=== PATIENT | female | born 1965 | race Caucasian/White ===

== ENCOUNTER 2018-05-13 13:53 | Inpatient (IN) | payer MEDICARE, MEDICAID ==
[~2018-05-13] VITALS: Ht 165.1 cm; Wt 54.4 kg
[~2018-05-13 13:53] MED LIST: ADVAIR 250-501 EACH IH; ALAVERT10 MG PO; ALCOHOL PADS1 EACH; AMOXICILLIN875 MG PO; ASPIRIN81 M2 PO; AUGMENTIN 875875 MG PO; BACLOFEN 10MG T10 M1; BENTYL20 MG PO; BUDEPRION XL300 MG PO; CIPROFLOXACIN500 M1 PO; CLARITIN; COLACE100 MG PO; CRESTOR; CRESTOR20 MG PO; CYCLOBENZAPRINE; CYMBALTA60 MG PO; DIFLUCAN PO; DIPHENHYDRAMINE25 M3 PO; DOCUSATE SODIU100 MG PO; DOXYCYCLINE 10100 MG PO; DUONEB 2.5-0.5 M3 ML INH; ENABLEX15 MG PO; FENTANYL PA50 MCG/HR; FENTANYL PATCH75 MCG TP; FLAGYL500 MG PO; GLIPIZIDE ER10 MG PO; GLUCOMETER; GLUCOPHAGE1000 MG PO; GLUCOPHAGE500 MG PO; GLYCOLAX POWDER17 GM PO; HYDROCODON-ACE1 EAC7 PO; HYDROCODONE-AP1 EAC6 PO; HYZAAR 50-12.51 EACH PO; HYZAAR 50-12.51 TAB; JANUMET 50-1,01 EACH PO; JANUVIA 50 MG T50 M1 PO; JANUVIA50 MG PO; LEVAQUIN 500 M500 MG PO; LIPITOR20 MG PO; LIPITOR80 MG PO; LOPERAMIDE 2 MG2 MG PO; MACROBID 100 M100 M1 PO; MEDROLDOSEPACK PO; METFORMIN; METOCLOPRAMIDE10 MG PO; NEURONTIN 300300 M1 PO; NEURONTIN800 MG PO; NEXIUM40 MG PO; NORCO 5-325 TA1 EACH PO; NOVOLOG100 UNIT/1; NYSTATIN 1100000 U/M OR; ONDANSETRON HCL4 M2 PO; OXYBUTYNIN CHLO10 MG PO; PAIN & FEVER500 MG PO; PERCOCET 5-3251 EACH PO; PHENADOZ25 MG RC; PHENERGAN12.5 MG PO; PRINIVIL10 MG; PROAIR HFA8.5 GM IH; PROMETHAZINE12.5 M1 PO; PROZAC 20 MG20 M1 PO; REQUIP; REQUIP0.5 MG PO; SANCTURA; SANCTURA20 MG PO; SAVELLA50 MG PO; SYMBICORT160 MCG/4. INH; TUSSIONEX PENN115 ML PO; ULTRAM 50MG TAB50 MG PO; VENTOLIN17 GM INH; VERAPAMIL HCL240 MG PO; VICODIN; VICODIN 5-3001 EACH PO; VICODIN 5-5001 EACH PO; ZOCOR 20 MG TAB20 M1 PO; ZOFRAN ODT4 MG PO; ZOFRAN ODT4 MG SUBLING; ZOFRAN4 MG PO; [UNRECOGNIZED DRUG - SUPPLY]; [UNRECOGNIZED DRUG - SUPPLY]
[2018-05-13 14:12] LABS: ABSOLUTE BASOPHILS 0.1 thou/uL (0.0-0.2); ABSOLUTE EOSINOPHILS 0.2 thou/uL (0.0-0.7); ABSOLUTE LYMPHOCYTES 1.5 thou/uL (0.8-5.3); ABSOLUTE NEUTROPHILS 12.5 thou/uL (1.6-8.1); BASOPHILS 0.7 %; EOSINOPHILS 1.2 %; HEMATOCRIT 40.2 % (37.0-47.0); HEMOGLOBIN 13.2 gm/dL (12.0-15.0); MCH 29.9 pg (26.0-34.0); MCHC 32.7 g/dL (28.0-37.0); MCV 91.4 fL (80.0-100.0); MONOCYTES 6.4 %; MPV 7.6 fl. (7.2-11.1); NUCLEATED RBCS 0 /100WBC; PLATELET COUNT* 362 thou/uL (150-400); POLYS 81.7 %; RDW-CV 14.7 % (10.5-14.5); WBC 15.3 thou/uL (4.0-11.0)
[2018-05-13 14:19] LABS: CALCIUM 8.7 mg/dL (8.5-10.1); CREATININE 1.3 mg/dL (0.6-1.3); POTASSIUM 3.7 mmol/L (3.5-5.1)
[2018-05-13 14:23] LABS: ALBUMIN 2.8 g/dL (3.4-5.0); MAGNESIUM 1.7 mg/dL (1.8-2.4); TOTAL BILIRUBIN 0.5 mg/dL (<0.1-1.0); TOTAL PROTEIN 7.2 g/dL (6.4-8.2)
--- NOTE | 2018-05-13 14:38 | NUR ---
PT REPORTS TAKING 4 OXYCODONE TODAY
[2018-05-13 14:43] LABS: URINE BILIRUBIN NEGATIVE (Negative); URINE BLOOD 3+ (Negative); URINE COLOR YELLOW; URINE GLUCOSE-RANDOM NEGATIVE (Negative); URINE KETONES NEGATIVE (Negative); URINE LEUKOCYTES-REFLEX NEGATIVE (Negative); URINE NITRITE-REFLEX NEGATIVE (Negative); URINE PROTEIN 1+ (Negative); URINE SPECIFIC GRAVITY >= 1.030 (1.005-1.030); URINE UROBILINOGEN 0.2 E.U./dl (0.2-1.0)
[2018-05-13 14:45] LABS: URINE CLARITY HAZY
[2018-05-13 14:51] LABS: SQUAMOUS 4-10 Moderate /LPF (0-3)
[2018-05-13 14:52] LABS: AMORPHOUS URATES Moderate /LPF (None Seen); BACTERIA-REFLEX None Seen /HPF (None Seen); FINE GRANULAR CASTS 0-3 Few /LPF (None Seen); HYALINE CASTS 0-3 Few /LPF (None Seen); URINE RBC 3-10 Few /HPF (0-2); URINE WBC-REFLEX None Seen /HPF (0-5)
[2018-05-13 15:05] LABS: BE -4.2 mmol/L (-2 to +3); HCO3 20.9 mmol/L (22.0-26.0); PCO2 38.6 mmHg (35.0-45.0); PO2 70.5 mmHg (75.0-100.0); pH 7.351 (7.340-7.450)
[2018-05-13 15:23] LABS: AMP/METHAMP Negative (Negative); BARBITURATES Negative (Negative); BENZODIAZEPINES Negative (Negative); COCAINE Negative (Negative); METHADONE Negative (Negative); OPIATES POSITIVE (Negative); PCP Negative (Negative); THC Negative (Negative)
--- NOTE | 2018-05-13 16:10 | NUR ---
ATTEMPTED [facility] BUT PT CANNOT STAY AWAKE LONG ENOUGH TO APPROPRIATELY COMPLETE AN ACCURATE ASSESSMENT. PT REQUIRES FREQUENT STIMULI, EITHER BY SHAKING OF SHOULER OR ARM OR VOICE COMMAND, TO INITIATE ANY KIND OF RESPONSE. PT DID CORRECTLY ANSWER MONTH, NAME, AND STATED SHE WAS AT THE HOSPITAL ON ARRIVAL.
[2018-05-13 16:32] LABS: APTT 33.8 Seconds (25.0-31.3); PROTIME 9.8 Seconds (9.20-11.50)
--- NOTE | 2018-05-13 17:45 | NUR ---
PT FAMILY NOTIFIED OF POSSIBLE CARBON MONOXIDE POISONING IN HOUSE BASED ON PT LABS AND ENCOURAGED TO LEAVE HOUSE UNTIL LEVELS CAN BE MEASEURED. DAUGHTER SAID SHE WOULD CONTACT THE [facility] BUT WAS UNSURE IF THEY WOULD LEAVE HOUSE BECAUSE THEY HAVE NOWHERE TO GO. THIS NURSE STRESSED IMPORTANCE OF GETTING THE LEVELS CHECKED IN HOUSE AND LEAVING ADAN TO AVOID GETTING POSSIBLE CARBON MONOXIDE POSIONING THEMSELVES.
[2018-05-13 18:59] VITALS: BP 125/56
[2018-05-13 19:01] VITALS: BP 116/56
[2018-05-13 19:03] LABS: BE -5.3 mmol/L (-2 to +3); HCO3 21.4 mmol/L (22.0-26.0); PCO2 46.3 mmHg (35.0-45.0)
[2018-05-13 19:07] LABS: pH 7.283 (7.340-7.450)
[2018-05-13 19:08] LABS: PO2 228.5 mmHg (75.0-100.0)
[2018-05-13 20:00] VITALS: BP 105/55
[2018-05-13 21:01] VITALS: BP 108/58
[2018-05-13 22:00] VITALS: BP 121/61
[2018-05-13 23:00] VITALS: BP 137/73
[2018-05-14] VITALS (17 sets, daily range): BP systolic 123–159; BP diastolic 62–90
--- NOTE | 2018-05-14 05:30 | NUR ---
ASSUMED PATIENT CARE AT 1900. PATIENT LETHARGIC WITH VERY POOR RESPONSES AT THIS TIME. RN ASSESSMENTS THROUGHOUT NIGHT DOCUMENTED. PATIENT ALERT AND ORIENTED TIMES FOUR THIS AM. SITTING UP AT SIDE OF BED, ON 3L VIA NC. O2 AT 96% ON THIS. PATIENT REQUESTING PAIN MEDICATION R/T RECENT BACK SURGERY. DR Turcios OTIFIED AND NEW ORDERS RECEIVED. NO OTHER COMPLAINTS AT THIS TIME. ALL VITAL SIGNS REMAIN WNL. IV PATENT TO FLUIDS. CATHETER PATENT.
[2018-05-14 06:08] LABS: BE -2.5 mmol/L (-2 to +3); PCO2 36.9 mmHg (35.0-45.0); pH 7.393 (7.340-7.450)
--- NOTE | 2018-05-14 14:20 | NUR ---
PT.ALERT AND ORIENTED. SON LIVES WITH HER IN AN APT. AND CAN ASSIST HER IF NEEDED. SHE SAID SHE IS USUALLY INDEPENDENT. SHE DOES NOT USE DME. NO HX OF SNF OR HOME HEALTH. SHE SAID SHE IS DISABLED DUE TO HER BACK AND NECK. SHE HOPES TO GO HOME SOON.
--- NOTE | 2018-05-14 14:47 | 2DMMODE ---
[place] [address] 2 D/M-MODE ECHOCARDIOGRAM Name: LORENZO YOUNGER Room: [address] IN [facility]#: [id number] Admission: 05/13/18 Attend Phys: Barbi Aaron, Discharge: Date of : 63 Date of Service: 05/14/18 1447 Report #: [id number] THIS REPORT FOR: //name// APPROVED REPORT Study performed: 05/14/2018 10:19:21 EXAM: Comprehensive 2D, Doppler, and color-flow Echocardiogram Patient Location: In-Patient Room #: [facility] Status: routine BSA: 2.23 HR: 93 bpm BP: 129/68 mmHg Rhythm: NSR Other Information Study Quality: Good Indications Elevated Troponin 2D Dimensions IVSd: 9.28 (7-11mm) LVOT Diam: 19.75 (18-24mm) LVDd: 53.63 mm PWd: 11.67 (7-11mm) Ascending Ao: 33.41 (22-36mm) LVDs: 35.57 (25-40mm) Aortic Root: 31.35 mm Volumes Left Atrial Volume (Systole) LA ESV Index: 29.90 mL/m2 Aortic Valve AoV Peak Cayetano.: 2.17 m/s AO Peak Gr.: 18.83 mmHg LVOT Max P.34 mmHg AO Mean Gr.: 9.26 mmHg LVOT Mean P.28 mmHg LVOT Max V: 1.68 m/s AO V2 VTI: 38.13 cm LVOT Mean V: 1.05 m/s STEPAN (VTI): 2.69 cm2 LVOT V1 VTI: 33.47 cm Mitral Valve E/A Ratio: 1.21 MV Decel. Time: 194.76 ms MV E Max Cayetano.: 1.23 m/[place] [address] 2 D/M-MODE ECHOCARDIOGRAM Name: LORENZO YOUNGER Room: [address] IN .R.#: [id number] Admission: 05/13/18 Attend Phys: Barbi Aaron, Discharge: Date of : 63 Date of Service: 05/14/18 1447 Report #: [id number] MV PHT: 56.48 ms MVA (PHT): 3.90 cm2 TDI E/Lateral E': 9.46 E/Medial E': 8.79 Medial E' Cayetano.: 0.14 m/s Lateral E' Cayetano.: 0.13 m/s Pulmonary Valve PV Peak Cayetano.: 1.49 m/s PV Peak Gr.: 8.89 mmHg Tricuspid Valve RAP Estimate: 5.00 mmHg TR Peak Gr.: 33.85 mmHg RVSP: 39.00 mmHg PA Pressure: 39.00 mmHg Left Ventricle The left ventricle is normal size. There is normal LV segmental wall motion. There is normal left ventricular wall thickness. Left ventricular systolic function is normal. The left ventricular ejection fraction is within the normal range. LVEF is 65%. The left ventricular diastolic function is normal. Right Ventricle The right ventricle is normal size. The right ventricular systolic function is normal. Atria The left atrium size is normal. The right atrium size is normal. Aortic Valve Mild aortic valve sclerosis. No aortic regurgitation is present. There is no aortic valvular stenosis. Mitral Valve The mitral valve is normal in structure. Trace mitral regurgitation. No evidence of mitral valve stenosis. Tricuspid Valve The tricuspid valve is normal in structure. Trace tricuspid regurgitation. Mild pulmonary hypertension. Pulmonic Valve The pulmonary valve is normal in structure. There is no pulmonic valvular regurgitation[place] [address] 2 D/M-MODE ECHOCARDIOGRAM Name: LORENZO YOUNGER Room: [address] IN [facility]#: [id number] Admission: 05/13/18 Attend Phys: Barbi Aaron, Discharge: Date of : 63 Date of Service: 05/14/18 1447 Report #: [id number] Great Vessels The aortic root is normal in size. IVC is normal in size and collapses >50% with inspiration. Pericardium There is no pericardial effusion. <Conclusion> The left ventricle is normal size. There is normal left ventricular wall thickness. Left ventricular systolic function is normal. The left ventricular ejection fraction is within the normal range. LVEF is 65%. The left ventricular diastolic function is normal. The right ventricle is normal size. The left atrium size is normal. Mild aortic valve sclerosis. No aortic regurgitation is present. There is no aortic valvular stenosis. The mitral valve is normal in structure. Trace mitral regurgitation. The tricuspid valve is normal in structure. IVC is normal in size and collapses >50% with inspiration. There is no pericardial effusion. There is normal LV segmental wall motion. <ELECTRONICALLY SIGNED> By: Jamarcus Chang MD, FACC 05/14/18 1447 144 144 Jamarcus Chang MD, FACC /INF
--- NOTE | 2018-05-14 14:57 | NUR ---
Nutrition: Pt admitted to ICU with AMS, CO poisoning. H/o GERD, DM, HTN. Labs: alb 2.8, prealb 11.2, BG 120s. Depleted visceral protein stores. Pt wants to go home, apparently. Sleep apnea/smoking/narcotics. Pt is eating now. Wt: 120#. She did have recent back surgery. No nutrition interventions needed at this time.
--- NOTE | 2018-05-14 16:11 | NUR ---
PT ABLE TO STATE NAME, LOCATION, DATE AND WHY SHE CAME INTO HOSPITAL. PT FLAT. PT RATED PAIN 8/10. NOT TIME FOR PAIN MEDICATION. ICE APPLIED. PT REPORTED THIS HELPED. ASKED PT WHAT NUMBER PAIN IS COMFORTABLE FOR HER. PT REPORTED "I DON'T KNOW". DISCUSSED MORE WITH PATIENT HOW LOW PAIN GOES AND WHAT IS A REASONABLE PAIN RATING. PT STATED 10/07. PT SAT IN CHAIR FOR 1.5 HOURS. PT HAD 2 LARGE, FORMED, BROWN, BOWEL MOVEMENTS VIA BED SIDE COMMODE. PT AFEBRILE. MRI ORDERED. PT UNABLE TO RECALL METAL IN BODY FROM BACK SURGERY 04/17. FAMILY MEMBER VITOR CALLED, SPOKE TO THIS FAMILY MEMBER EARLIER TODAY, NO ANSWER ON PHONE CALL. PAGE OUT TO DR CRAFT TO UPDATE STATUS OF MRI.
--- NOTE | 2018-05-14 16:56 | NUR ---
WOUND NURSE: PATIENT SEEN FOR INITIAL ASSESSMENT OF POSTOPERATIVE WOUND IN THE LUMBAR AREA. PRESENTS A PARTIALLY CLOSED INCISION MEASURING 7.8 X 0.3 X 0.7 CM. THERE IS BOTH RED, NONGRANULATING AND GRANULATING TISSUE IN THE WOUND BED. THERE IS NON ACRIVE DRAINAGED NOTED. THERE IS SLIGHT PERIINCISIONAL REDNESS NOTED. CLEANSED WITH WOUND CLEANSER AND GAUZE THEN APPLIED AQUACEL AG UNDER BORDERED FOAM DRESSING. PATIENT INSTRUCTED ON MEASURES TO PROMOTE HEALING AND PREVENT COMPLICATIONS. PATIENT STATED SHE UNDERSTOOD.
--- NOTE | 2018-05-14 17:38 | NUR ---
PATIENT CARE ASSUMED AT 1655 FROM DONYA BUTT. TRANSFERED TO ROOM 311 AT 1730. REPORT GIVEN TO DONYA DONOHUE. PATIENT TRANSFERED BY WHEELCHAIR WITH SSDS MK 2 ADVANCED OPERATOR. ALL BELONGINGS SENT WITH PATIENT, INCLUDING CLOTHES. PATIENT HAD NO SHOES UPON ARRIVAL.
--- NOTE | 2018-05-14 18:42 | NUR ---
PATIENT TRANSFERRED TO ROOM 311 VIA WHEELCHAIR FROM ICU AT 1745. PATIENT'S CARDIAC MONITORING RESUMED, TRACING NSR. PATIENT ON ROOM AIR, O2 SAT 95%, REFUSING O2 AT THE PRESENT TIME. STATES HAVING LOWER BACK PAIN AND LEFT LEG PAIN, EDUCATION PROVIDED ON WHEN NEXT PAIN MED IS DUE. TRIPLE LUMEN SC INTACT, LEFT WRIST IV SALINE LOCKED. BANDA PATENT. ORIENTED TO NEW ROOM AND ENVIRONMENT. CALL LIGHT WITHIN REACH. WILL CONTINUE WITH PLAN OF CARE.
[2018-05-15 04:37] VITALS: BP 149/68
--- NOTE | 2018-05-15 05:46 | NUR ---
ASSESSMENT COMPLETE. PT SLEPT MOST OF THE NIGHT. PT ALERT AND ORIENTED X4. PT REPORTS PAIN IN BACK AND LEGS. MEDICATIONS GIVEN NEEDED PER ORDERS. PT IS ON 2L PER NC AT HS. PT ON TELE MONITOR. PT DENIES N/V. BANDA IN PLACE. PT IS FALL RISK, BED ALARM ON. PT IS Q2 TURN. PT IS UP ONE ASSIST WITH WALKER AND GAIT BELT TO BSC. SEE ASSESSMENT AND VITALS FOR OTHER DETAILS. CALL LIGHT WITHIN REACH, WILL CONTINUE PLAN OF CARE
--- NOTE | 2018-05-15 06:41 | NUR ---
PT REPORTS TO NURSE THAT SHE WAS TURNING IN BED AND BANDA CAME OUT. CYNTHIA NAQVI ASSESSED BANDA AND REPORTED THAT BALLOON WAS NO LONGER INFLATED WHEN PT REPORTED BANDA COMING OUT. WILL NOTIFY PHYSICIAN.
[2018-05-15 07:30] VITALS: BP 137/73
--- NOTE | 2018-05-15 07:37 | CON ---
[address] [address] CONSULTATION Name: LORENZO YOUNGRE Room: [address] IN M.R.#: [id number] Admission: 05/13/18 Attend Phys: Barbi Aaron MD Discharge: Date of : 63 Report #: [id number] THIS REPORT FOR: //name// CC: HARESH physician/PCP Barbi Aaron DATE OF SERVICE: 05/14/2018 REQUESTING PHYSICIAN: Dr. Barbi Aaron. REASON FOR CONSULTATION: Altered level of consciousness, possible CO poisoning. DISCUSSION: The patient is a 52-year-old woman who has a history of significant tobacco abuse of 2 packs per day. She was found minimally responsive in her bathroom by a family member. She was on the floor in the bathroom. She was given Narcan in the ED as she is on chronic narcotics at home, had recent back surgery. Initial lab in the Emergency Department included blood gas. Her carbon monoxide level was 7.7, that was on a couple of liters of oxygen. She was placed in the intensive care unit. She has generally become more responsive. However, she is a very poor historian. When I saw her, she was sitting up in the chair. She is able to provide some information, but frequently says "I don't know." She does have a history of COPD, severity unknown. She cannot tell me if she has ever seen a oil spreader operator or had any breathing test done. She apparently is on Spiriva daily, Symbicort twice a day. She has a nebulizer at home, but she notes she never uses it. She is not on oxygen. She has had episodes of bronchitis in the past, but denies any prior episodes of pneumonia. No history of lung cancer, pulmonary emboli. She is telling me this morning, however, that she "feels better." She denies shortness of breath. She notes she will typically have some periods where she tends to have some cough as well, but denies any hemoptysis. PAST MEDICAL HISTORY: Remarkable for COPD, again severity unknown. She has had recent lower back surgery. She was in the hospital just overnight. She has had also a cholecystectomy, history of GERD, depression, diabetes mellitus, has had surgery on her neck and in addition to her lower back. MEDICATIONS: At this time, we are waiting for updated list of home medications. It does appear that she does take atorvastatin, verapamil, lisinopril, Cymbalta, docusate p.r.n., Zofran, Nexium, Janumet, oxybutynin. SOCIAL HISTORY: Two pack a day smoker. Daughter lives with her, smokes as well. FAMILY HISTORY: "I don't know." [place] [address] CONSULTATION Name: LORENZO YOUNGER Room: [address] IN ..#: [id number] Admission: 05/13/18 Attend Phys: Barbi Aaron MD Discharge: Date of : 63 Report #: [id number] REVIEW OF SYSTEMS: Questionable reliability. She does deny any chest pain or palpitations. She notes her appetite has been good. Denies any difficulty swallowing. Denies any abdominal discomfort. She does tend towards constipation. Denies any hemoptysis or blood in her stools. Denies having any falls prior to falling in the bathroom yesterday. She cannot recall the events leading up to that. LABORATORY AND X-RAY FINDINGS: On her chemistry, her potassium is 3.7, BUN 21, creatinine 1.3. Her serum bicarbonate was 23. Transaminases and bilirubin were normal. Albumin 2.8. ProBNP 1140. Troponin peaked yesterday at 0.17, is normal this morning. Drug screen was positive for opiates. White blood cell count 15,300, hemoglobin 13.2, hematocrit 40.2, platelets 362,000. Prealbumin 11.2. Arterial blood gas done in the ED yesterday pH was 7.35, pCO2 of 39, pO2 of 71, bicarbonate of 21 with a saturation of 86%. Methemoglobin was 0.3, CO level was 7.7. She was placed on a nonrebreather. Follow up blood gases yesterday evening, pH dropped to 7.28, pCO2 of 46, pO2 of 228 with a CO of 2.9. Blood gases this morning, pH of 7.39, pCO2 of 37, pO2 of 90, bicarbonate of 22 with a saturation of 96%. That was on 3 liters. Blood cultures were sent. A chest x-ray done initially in the ED suggested some cardiomegaly. Mild prominence of interstitial markings. CTA was done of her chest. No pulmonary emboli were seen. She does have some prominence of her pulmonary arteries. She did have some mild ground glass infiltrates. She had a portable x-ray done this morning. She notes a rounded density right mid lung field. This was not seen on the CT scan done yesterday. PHYSICAL EXAMINATION: GENERAL APPEARANCE: The patient is a woman who looks older than stated age. She is sitting up in a chair. She is in no acute distress. At times, she is slow to respond or answer questions. Not a very good historian as noted above. HEENT: Head is normocephalic. Sclerae nonicteric. Mucous membranes do look little dry. NECK: Negative for any adenopathy. No JVD is appreciated. HEART: Regular. May have a grade 1/6 systolic murmur. No S3 is heard. LUNGS: Reveal breath sounds to be mildly diminished. No wheezing or crackles are heard. Slight prolongation of expiratory phase. EXTREMITIES: She has some ecchymotic areas seen on her arms. No clubbing. Radial pulses are present. Lower extremities, no edema is noted. Skin Turgor is fair. ABDOMEN: Obese, but soft. Denies tenderness. IMPRESSION: 1. Altered level of consciousness, improved. Exact etiology not clear. I suspect may be related to her narcotic use. 2. Mild elevation of carboxyhemoglobin. Not unexpected given her 2 pack a day smoking history. I do not believe it contributed to alterations in [place] [address] CONSULTATION Name: LORENZO YOUNGER Room: [address] IN [facility]#: [id number] Admission: 05/13/18 Attend Phys: Barib Aaron MD Discharge: Date of : 63 Report #: [id number] 3. Mild metabolic acidosis, improving. 4. Chronic obstructive pulmonary disease, severity unknown. She is on bronchodilator therapy at home. 5. Diabetes mellitus. 6. Chronic narcotic use. 7. Tobacco abuse. RECOMMENDATIONS: 1. We will start bronchodilator therapy to match what she he does at home 2. We will use DuoNeb every 4 hours while awake, as well as Brovana and budesonide twice a day. 3. Wean O2. 4. Long-term smoking cessation. 5. I will need to ascertain exactly what she has at home medication khoury. Evaluate schedule, may need some input from her family on administration of some of the narcotics if it appears that she may have inadvertently overdosed. 6. Activity as tolerated. <ELECTRONICALLY SIGNED> By: Esha Gong MD 05/15/18 0737 1005 Luis Gong MD /nt
[2018-05-15 08:20] VITALS: BP 134/73
[2018-05-15 12:00] VITALS: BP 159/85
[2018-05-15 13:20] LABS: ABSOLUTE BASOPHILS 0.1 thou/uL (0.0-0.2); ABSOLUTE LYMPHOCYTES 1.3 thou/uL (0.8-5.3); ABSOLUTE MONOCYTES 0.7 thou/uL (0.0-1.2); ABSOLUTE NEUTROPHILS 9.8 thou/uL (1.6-8.1); BASOPHILS 1.1 %; EOSINOPHILS 0.4 %; HEMATOCRIT 36.5 % (37.0-47.0); HEMOGLOBIN 11.9 gm/dL (12.0-15.0); LYMPHOCYTES 10.5 %; MCH 29.2 pg (26.0-34.0); MCHC 32.5 g/dL (28.0-37.0); MCV 89.8 fL (80.0-100.0); MONOCYTES 6.2 %; MPV 7.6 fl. (7.2-11.1); NUCLEATED RBCS 0 /100WBC; PLATELET COUNT* 302 thou/uL (150-400); POLYS 81.8 %; RBC 4.07 mil/uL (4.20-5.00); RDW-CV 14.4 % (10.5-14.5)
[2018-05-15 13:36] LABS: ALBUMIN 2.3 g/dL (3.4-5.0); CALCIUM 8.6 mg/dL (8.5-10.1); CREATININE 0.7 mg/dL (0.6-1.3); POTASSIUM 3.4 mmol/L (3.5-5.1); TOTAL BILIRUBIN 0.5 mg/dL (<0.1-1.0); TOTAL PROTEIN 6.6 g/dL (6.4-8.2)
[2018-05-15 16:00] VITALS: BP 146/78
--- NOTE | 2018-05-15 16:50 | EKG ---
[place] [address] ELECTROCARDIOGRAM REPORT Name: LORENZO YOUNGER Room: [address] ADM IN M.R.#: [id number] Admission: 05/13/18 Attend Phys: Barbi Aaron MD Discharge: Date of : 63 Report #: [id number] THIS REPORT FOR: //name// [facility] ED Test Date: 2018-05-13 Test Time: 14:01:36 Pat Name: LORENZO YOUNGER Department: Room: [facility] Gender: F Natural Resources Specialist: : 1965 Requested By: Octavia Vazquez Order Number: [id number] MD: Jamarcus Chang Measurements Intervals [place] Rate: 100 P: 59 [place]: 146 QRS: 55 QRSD: 80 T: 53 QT: 346 QTc: 447 Interpretive Statements Sinus tachycardia Probable left atrial enlargement Baseline wander in lead(s) V5 Compared to ECG 03/10/2017 12:47:01 Sinus rate has increased T-wave abnormality no longer present Prolonged QT interval no longer present Electronically Signed On 05-15-2018 16:50:13 CDT by Jamarcus Chang [email or web address] <ELECTRONICALLY SIGNED> By: Jamarcus Chang MD, FACC 05/15/18 1650 1401 1401 Jamarcus Chang MD, [facility] /EPI
--- NOTE | 2018-05-15 16:52 | EKG ---
[place] [address] ELECTROCARDIOGRAM REPORT Name: CARISALORENZO Room: [address] ADM IN M.R.#: [id number] Admission: 05/13/18 Attend Phys: Barbi Aaron MD Discharge: Date of : 63 Report #: [id number] THIS REPORT FOR: //name// [facility] ED Test Date: 2018-05-13 Test Time: 16:00:03 Pat Name: LORENZO YOUNGER Department: Room: [facility] Gender: F Sleeve Machine Tender: : 1965 Requested By: Octavia Vazquez Order Number: [id number] MD: Jamarcus Chang Measurements Intervals [place] Rate: 103 P: 51 SC: 150 QRS: 48 QRSD: 81 T: 41 QT: 348 QTc: 456 Interpretive Statements Sinus tachycardia Probable left atrial enlargement Compared to ECG 03/10/2017 12:47:01 Sinus rate has increased T-wave abnormality no longer present Prolonged QT interval no longer present Electronically Signed On 05-15-2018 16:51:47 CDT by Jamarcus Chang [email or web address] <ELECTRONICALLY SIGNED> By: Jamarcus Chang MD, FACC 05/15/18 1651 1600 1600 Jamarcus Chang MD, FACC /EPI
--- NOTE | 2018-05-15 17:43 | NUR ---
PATIENT HAS BEEN A/O X 4 THIS SHIFT, SLIGHTLY FORGETFUL AT TIMES. PATIENT CONTINUES TO COMPLAIN OF SEVERE BACK PAIN, MEDICATED WITH PRN OXY AND STARTED ON TYLENOL THIS AFTERNOON. ICY HOT OINTMENT STARTED TO LOWER BACK THIS SHIFT. CONTINUES ON LIDOCAINE PATCH. UP TO CHAIR THIS MORNING. UP WITH SBA TO BSC, VOIDING WITHOUT DIFFICULTY. BLOOD SUGARS MONITORED. APPETITE FAIR. EDUCATED REGARDING PAIN CONTROL AND RESPIRATORY STATUS, AND VERBALIZED UNDERSTANDING. PATIENT TURNING IN BED, MOSTLY STAYING ON RIGHT SIDE WITH HEELS ELEVATED. FALL PRECAUTIONS IN PLACE. HOURLY ROUNDING COMPLETED. CALL LIGHT WITHIN REACH. WILL CONTINUE WITH PLAN OF CARE.
[2018-05-15 19:26] VITALS: BP 124/62
[2018-05-16 00:17] VITALS: BP 143/71
[2018-05-16 04:00] VITALS: BP 144/76
[2018-05-16 04:26] LABS: HEMATOCRIT 35.3 % (37.0-47.0); HEMOGLOBIN 11.8 gm/dL (12.0-15.0); MCH 30.4 pg (26.0-34.0); MCHC 33.3 g/dL (28.0-37.0); MCV 91.1 fL (80.0-100.0); MPV 7.9 fl. (7.2-11.1); RBC 3.88 mil/uL (4.20-5.00); RDW-CV 14.9 % (10.5-14.5); WBC 10.2 thou/uL (4.0-11.0)
[2018-05-16 04:31] LABS: ALBUMIN 2.2 g/dL (3.4-5.0); CALCIUM 8.6 mg/dL (8.5-10.1); CREATININE 0.8 mg/dL (0.6-1.3); POTASSIUM 3.5 mmol/L (3.5-5.1); TOTAL BILIRUBIN 0.5 mg/dL (<0.1-1.0); TOTAL PROTEIN 6.5 g/dL (6.4-8.2)
--- NOTE | 2018-05-16 05:59 | NUR ---
ASSESSMENT COMPLETE. PT ALERT AND ORIENTED X4. PT FLAT. PT REPORTS PAIN IN BACK. PRN PAIN MEDICATIONS GIVEN ORDERED PRN. PT IS ON 2L PER NC AT HS FOR SLEEP APNEA. PT IS NSR ON TELE MONITOR. Q4 VITALS STABLE AND AFEBRILE THROUGH THE NIGHT. DRESSING TO BACK CHANGED AT HS, C/D/I AT THIS TIME. PT HAS BEEN NPO SINCE MIDNIGHT FOR ABDOMINAL US. PT HAS SOME TRACE EDEMA NOTED TO BLE, ELEVATED WITH PILLOWS. PT IS UP TO [facility] ASSIST WITH GAIT BELT. PT IS FALL RISK, BED ALARM ON. Q2 TURN FOR SKIN INTEGRITY. SEE ASSESSMENT AND VITALS FOR OTHER DETAILS. CALL LIGHT WITHIN REACH, WILL CONTINUE PLAN OF CARE
[2018-05-16 07:45] VITALS: BP 138/87
[2018-05-16 12:00] VITALS: BP 143/73
--- NOTE | 2018-05-16 12:58 | NUR ---
WOUND NURSE: PATIENT SEEN FOR DRESSING CHANGE TO LOW BACK WOUND. REMOVED DRESSING AND CLEANSED WITH WOUND CLEANSER AND GAUZE, THEN APPLIED AQUACEL AG UNDER BORDERED FOAM DRESSING. SMALL AMOUNT OF SEROUSANGUINOUS DRAINAGE ON THE OLD DRESSING. MINIMAL PERIWOUND REDNESS, WARMTH, OR INDURATION. PATIENT REINSTRUCTED ON MEASURES TO PROMOTE HEALING AND PREVENT COMPLICATIONS WITH FAVORABLE PROGRESS TOWARD UNDERSTANDING.
[2018-05-16 15:11] LABS: HEPATITIS B SURFACE AG Negative (Negative)
[2018-05-16 16:00] VITALS: BP 155/87
--- NOTE | 2018-05-16 16:21 | NUR ---
PATIENT GIVEN PRN OXY IR AND PRN TYLENOL FOR BACK PAIN, FAMILY CONCERNED THIS ISN'T WORKING FOR PATIENT. DR. JEFFERY NOTIFIED AND PO ATIVAN AND ANOTHER LIDODERM PATCH ADDED TO SEP. DRESSING CHANGED TO BACK INCISION BY ELIEL FROM WOUND CARE. IV ABX STARTED THIS AM FOR CXR RESULTS, CXR TO BE DONE AGAIN IN AM. [facility], NO FAX RECEIVED AT THIS TIME. WILL CONTINUE TO MONITOR.
[2018-05-16 20:00] VITALS: BP 144/80
[2018-05-17] VITALS: BP 147/79
[2018-05-17 04:00] VITALS: BP 150/68
--- NOTE | 2018-05-17 04:29 | NUR ---
ASSESSMENT: PT REMAIN ALERT AND ORIENT TIMES THREE. DUQUE. C/O BACK AND LEG PAIN, PRN PAIN MEDICATIONS GIVEN WITH PARTIAL RESULTS PER PT. C/O NAUSEA, PO ZOFRAN GIVEN, PT WAS REQUESTING IV ZOFRAN TO TAKE ALONG WITH OXYCODONE. SR PER MONITOR. VSS, LOW GRADE TEMP EARLIER IN THE SHIFT OF 99.0 PT DISAPPOINTED THAT SHE CAN NOT GET ANYTHING STRONGER FOR PAIN, NOR SOMETHING FOR SLEEPING. LAST BM WAS 05/16. WILL CONTINUE TO MONITOR, SLOW PROGRESS.
[2018-05-17 05:42] LABS: HEMATOCRIT 38.3 % (37.0-47.0); HEMOGLOBIN 12.5 gm/dL (12.0-15.0); MCH 29.3 pg (26.0-34.0); MCHC 32.7 g/dL (28.0-37.0); MCV 89.6 fL (80.0-100.0); MPV 7.6 fl. (7.2-11.1); RBC 4.27 mil/uL (4.20-5.00); RDW-CV 14.3 % (10.5-14.5)
[2018-05-17 05:58] LABS: CALCIUM 8.9 mg/dL (8.5-10.1); CREATININE 0.7 mg/dL (0.6-1.3); MAGNESIUM 1.7 mg/dL (1.8-2.4); POTASSIUM 3.5 mmol/L (3.5-5.1)
[2018-05-17 08:00] VITALS: BP 136/70
[2018-05-17 11:47] VITALS: BP 124/70
[2018-05-17 16:12] VITALS: BP 112/61
[2018-05-17 20:20] VITALS: BP 132/64
[2018-05-18] VITALS: BP 126/65
[2018-05-18 06:09] LABS: PCO2 35.5 mmHg (35.0-45.0)
[2018-05-18 06:10] LABS: BE 1.3 mmol/L (-2 to +3); HCO3 24.7 mmol/L (22.0-26.0); PO2 68.7 mmHg (75.0-100.0)
[2018-05-18 06:24] LABS: HEMATOCRIT 39.8 % (37.0-47.0); HEMOGLOBIN 13.1 gm/dL (12.0-15.0); MCH 29.3 pg (26.0-34.0); MCHC 32.8 g/dL (28.0-37.0); MCV 89.1 fL (80.0-100.0); MPV 7.8 fl. (7.2-11.1); RBC 4.47 mil/uL (4.20-5.00); RDW-CV 14.3 % (10.5-14.5); WBC 12.4 thou/uL (4.0-11.0)
[2018-05-18 06:40] LABS: ALBUMIN 2.2 g/dL (3.4-5.0); CALCIUM 8.8 mg/dL (8.5-10.1); CREATININE 0.8 mg/dL (0.6-1.3); MAGNESIUM 1.6 mg/dL (1.8-2.4); POTASSIUM 3.5 mmol/L (3.5-5.1); TOTAL BILIRUBIN 0.5 mg/dL (<0.1-1.0); TOTAL PROTEIN 6.9 g/dL (6.4-8.2)
--- NOTE | 2018-05-18 06:50 | NUR ---
PT SLEPT FAIRLY WELL OVERNIGHT. UP WITH SBA TO BSC TO VOID. RECEIVING OXY IR PAIN MED Q3 HOURS FOR CO BACK PAIN. DRSG CDI TO BACK. AM LABS DRAWN FROM L TL SUBCLAVIAN SL. LFA SL. HS ACCUCHECK NO INSULIN NEEDED. ABLE TO USE CALL LITE AND MAKE NEEDS KNOWN. CALL LITE IN EASY REACH, BED ALARM ON FOR SAFETY.
[2018-05-18 08:00] VITALS: BP 158/69
[2018-05-18 12:23] VITALS: BP 105/64
--- NOTE | 2018-05-18 18:55 | NUR ---
MRI COMPLETE, XRAYS COMPLETE, PAIN MANAGED WELL W/ MEDICATION, PATIENT PREFERS TO REMAIN IN BED MOST OF THIS SHIFT, MIKE IV ABT W/O S/S ADR, CONT POC.
[2018-05-18 20:00] VITALS: BP 117/54
[2018-05-19 00:40] VITALS: BP 112/49
[2018-05-19 04:00] VITALS: BP 151/81
--- NOTE | 2018-05-19 07:03 | NUR ---
VITALS WNL. SEE MAR. SEE CHARTING. FALL PRECAUTIONS IN PLACE. HOURLY ROUNDING FOR SAFETY.
[2018-05-19 09:30] VITALS: BP 125/72
[2018-05-19 16:02] VITALS: BP 111/44
--- NOTE | 2018-05-19 18:37 | NUR ---
ASSUMED PT CARE AT 0700 PT IS ALERT AND ORIENTED X 4 PT C/O PAIN GAE PAIN MEDS THROUGH OUT SHIFT, PT DENIES SOA ON RA, PT IS A FALL RISK BED ALARM IS ON, PT IS UP WITH ASSIST X 1 WITH WALKER, PT IS SR ON THE MOITOR, LABS DRAWN, LIDOCAINE PATCHES APPLIED ORDERED, PT IS UP IN CHAIR, WILL CONTINUE TO MONITOR
[2018-05-19 20:45] VITALS: BP 108/69
[2018-05-20 00:40] VITALS: BP 128/63
--- NOTE | 2018-05-20 06:18 | NUR ---
ALERT AND ORIENTED X4. UP WITH STAND BY ASSIST TO BATHROOM WITH WALKER. USING PO PAIN MEDICATION FREQUENTLY TO HELP WITH BACK AND LEG PAIN. DRESSING LOWER BACK CLEAN DRY AND INTACT. REMAINED IN SINUS RHYTHM ON HEART MONITOR. CALL LIGHT WITHIN REACH. BED ALARM ON.
--- NOTE | 2018-05-20 07:44 | NUR ---
ASSUMED CARE OF PT AT THIS TIME. REPORT OBTAINED FROM DONYA AVILA. PT SLEEPING AT THIS TIME.
[2018-05-20 08:00] VITALS: BP 128/83
--- NOTE | 2018-05-20 13:22 | CON ---
[address] [address] CONSULTATION Name: YOUNGERLORENZO Room: [address] ADM IN M.R.#: [id number] Admission: 05/13/18 Attend Phys: Barbi Aaron MD Discharge: Date of : 63 Report #: [id number] THIS REPORT FOR: //name// CC: HARESH physician/PCP Barbi Aaron DATE OF SERVICE: 05/19/2018 REASON FOR CONSULTATION: Evaluate lumbar spine fluid collection. HISTORY OF PRESENT ILLNESS: The patient was admitted on 05/13/2018 after a fall at home. She had acute metabolic encephalopathy. Also had pulmonary infiltrate. She had recent back surgery at [facility] and has complained of persistent pain. Because of this, she was imaged further with an MRI scan. This showed evidence of postsurgical changes from her left laminectomy L5-S1. There was some evidence of residual disk material, possibly causing some of the changes. There was a large adjacent posterior soft tissue fluid collection. There was minimal fluid enhancement at the L5-S1 disk. There was presacral and precoccygeal edema. Although the patient has had persistent pain, she has only had one episode of fever up to 100 degrees. She denies any other chills or sweats. She has been on levofloxacin since the . Denies any cough or sputum production. She remains on room air with adequate O2 saturation. No pleuritic chest pain. No palpitations, PND or orthopnea. Denies any GI or complaints. There has been no drainage from her back incision. Reports most of her pain in the lumbar spine region with radiation down both legs, right greater than left. She has had no loss of strength. She is able to ambulate. REVIEW OF SYSTEMS: Ten-point review of systems otherwise negative. ALLERGIES: CODEINE, ASPIRIN, IBUPROFEN AND NAPROSYN. MEDICATIONS: As noted on her MAR including Levaquin. PAST MEDICAL HISTORY: COPD, lumbar spine disease, cholecystectomy, gastroesophageal reflux, depression, diabetes, cervical spine surgery. FAMILY HISTORY: Noncontributory. SOCIAL HISTORY: She is a smoker of cigarettes. No significant alcohol intake. PHYSICAL EXAMINATION: GENERAL: She is obese, nontoxic, alert and cooperative. VITAL SIGNS: Stable. HEENT: Eyes: With no conjunctivitis or scleral icterus. Mouth: [place] [address] CONSULTATION Name: LORENZO YOUNGER Lucia Room: [address] IN ..#: [id number] Admission: 05/13/18 Attend Phys: Barbi Aaron MD Discharge: Date of : 63 Report #: [id number] NECK: Supple, with no thyromegaly or mass. No JVD. No palpable adenopathy. BACK: Tender in the lower lumbar spine region. Incision was reasonably approximated. There was just a small area of superficial dehiscence with minimal drainage. No surrounding cellulitis. She was morbidly obese with a large amount of fat deposits in the lower lumbar spine and buttock region. LUNGS: Clear. HEART: Regular, without murmur. ABDOMEN: Protuberant, soft and nontender. No hepatosplenomegaly or mass. EXTREMITIES: With minimal edema to the lower extremities. No cyanosis. NEUROLOGIC: She had normal cranial nerves. Sensation and strength in the upper extremities was normal. Lower extremities had some give way weakness. Sensation was intact and deep tendon reflexes in the knees and ankles were normal. SKIN: Otherwise dry without rash. PSYCHIATRIC: Mood was normal. Mental status normal. LABORATORY STUDIES: Sodium 135, potassium 3.5, bicarbonate 26, creatinine 0.8. Liver function test normal. Hepatitis A, B and C negative. Hemoglobin 13, WBC 12, platelet count 362,000. Differential was unremarkable. Sedimentation rate is pending. Prealbumin was 12.3. Urinalysis was unremarkable. Blood cultures are negative today. IMAGING STUDIES: As noted above with clear chest x-ray. IMPRESSION AND PLAN: A 52-year-old, approximately one month out from lumbar spine surgery. She has a fluid collection in the posterior soft tissues most consistent with a seroma. She is currently having no fever and her white count is only mildly elevated. In order to further sort this out, however, would require aspiration of the fluid collection. This collection measured 8 x 3 x 1.7 cm. Considering this extends from the skin to the posterior elements of the lumbar spine, could consider aspiration of the fluid. This may be better evaluated by her primary Surgery Service. For now, I would recommend continuing her current treatment program. Would follow this fluid collection following current hospital stay, would have her follow up with her spine surgeon. If she should spike more fever or increased leukocytosis, would then proceed with aspiration. I still suspect that most likely this is a seroma related to her previous surgery. <ELECTRONICALLY SIGNED> By: Fernando Bynum MD 05/20/18 1322 1732 [id number] Bynum MD /nt
[2018-05-20 16:19] VITALS: BP 102/55
--- NOTE | 2018-05-20 19:03 | NUR ---
PT VSS THIS SHIFT AND SR ON THE MONITOR. PT TOLERATING RA AND DIET THIS SHIFT. PT DOES NOT TAKE INSULIN AT HOME AND HAS NOT REQUIRED ANY CORRECTION THIS SHIFT. PT HAS SI ON BACK AND NEEDS DRESSING REINFORCED AND IF POSSIBLE CAN GET UP TO SHOWER THIS EVENING SHE DID NOT WANT TO TAKE OFF HER LIDOCAINE PATCHES EARLY. PT DRESSING MATERIALS ON UNIT. PT HAS C/O PAIN IN BACK THIS SHIFT PT GIVEN PAIN MEDICAITONS AND ANTI ANXIETY MEDICATIONS THIS SHIFT. DR AMIN ORDERED REHAB CONSULT THAT HAS BEEN CALLED THIS SHIFT. PT HAS 3L PICC AND ALL LUMENS WILL GIVE BLOOD, BUT IT TOOK MULTIPLE FLUSHES TO GET BLOOD RETURN ON THE WHITE LUMEN-LUMEN SLUGGISH, BUT ALL OTHER LUMENS WORK WELL. PT UP WITH 1.
[2018-05-20 19:45] VITALS: BP 117/69
[2018-05-21] VITALS: BP 157/74
[2018-05-21 05:09] LABS: HEMATOCRIT 34.1 % (37.0-47.0); HEMOGLOBIN 11.2 gm/dL (12.0-15.0); MCH 29.3 pg (26.0-34.0); MCHC 32.7 g/dL (28.0-37.0); MCV 89.4 fL (80.0-100.0); MPV 7.9 fl. (7.2-11.1); RBC 3.81 mil/uL (4.20-5.00); RDW-CV 14.1 % (10.5-14.5); WBC 11.2 thou/uL (4.0-11.0)
[2018-05-21 05:16] LABS: CREATININE 0.9 mg/dL (0.6-1.3); MAGNESIUM 1.7 mg/dL (1.8-2.4); POTASSIUM 3.3 mmol/L (3.5-5.1); TOTAL BILIRUBIN 0.3 mg/dL (<0.1-1.0); TOTAL PROTEIN 6.7 g/dL (6.4-8.2)
--- NOTE | 2018-05-21 06:13 | NUR ---
PT SLEPT MOST OF SHIFT. ASSESSMENT DOCUMENTED. MEDS GIVEN PER E-MAR. CENTRAL LINE PATENT. PAIN AND ANXIETY MEDS GIVEN PER E-MAR WITH RELIEF. TELE MONITOR READING SR-ST THIS SHIFT. PT AMBULATED TO BATHROOM SEVERAL TIMES THIS SHIFT. WILL CONTINUE TO MONITOR.
[2018-05-21 08:00] VITALS: BP 120/60
[2018-05-21] MEDS ORDERED: OXYCODONE HCL10 MG PO (10:48)
[2018-05-21] MEDS ORDERED: BROVANA15 MCG/2 M INH (10:48)
[2018-05-21] MEDS ORDERED: PULMICORT0.5 MG/2 M INH (10:48)
[2018-05-21] MEDS ORDERED: LYRICA 75 MG CA75 MG PO (10:48)
[2018-05-21] MEDS ORDERED: PAIN RELIEVER500 MG PO (10:48)
[2018-05-21] MEDS ORDERED: ATIVAN0.5 MG PO (10:48)
[2018-05-21] MEDS ORDERED: LEVAQUIN 500 M500 M1 PO (10:48)
[2018-05-21] MEDS ORDERED: REQUIP XL2 MG PO (10:48)
[2018-05-21] MEDS ORDERED: LIDOPATCH1 EACH TOP (10:48)
[2018-05-21] MEDS ORDERED: EXTRA STRENGTH85 GM TOP (10:48)
[2018-05-21 12:00] VITALS: BP 120/60
--- NOTE | 2018-05-21 14:38 | NUR ---
REECE spoke with Dr Aaron about recommendation for pt to dc to SNF. REECE met with pt to discuss safe dc planning and pt preference was for [facility]. REECE faxed referral and dc orders and med list to [facility] admissions and then received message from Albina in admissions at [facility] that they could accept pt today and could provide transportation at 6 pm. SW informed pt and pt said she already discussed information with her family. Pt nurse is aware of plan as well. [facility] ph [phone]
--- NOTE | 2018-05-21 19:37 | NUR ---
RESUMED CARE THIS AM, VSS, NO DISTRESS NOTED, DISCOMFORT MANAGED WELL W/ MEDICATION. DISCHARGE ORDERS RECEIVED, PATIENT TRANSPORTED VIA W/C VAN IN STABLE CONDITION TO [facility], REPORT GIVEN PRIOR TO D/C. PERSONAL EFFECTS GATHERED, ACCOUNTED FOR, IN COMPANY OF PATIENT.
--- NOTE | 2018-05-25 19:14 | EEG ---
[address] [address] EEG STUDY REPORT Name: LORENZO YOUNGER Room: [address] IN M.R.#: [id number] Admission: 05/13/18 Attend Phys: Barbi Aaron MD Discharge: 05/21/18 Date of : 63 Report #: [id number] THIS REPORT FOR: //name// CC: [facility] physician/PCP Barbi Aaron DATE OF SERVICE: 05/15/2018 This patient is being evaluated for altered mental status. EEG was done by placing the electrode by standard 10-20 system of electrode placement. Both referential and sequential montages were used for recording. Background activity in this patient's EEG is about 7-8 Hz and 30 microvolts. It is a symmetrical activity. Photic stimulation was unremarkable. The patient went to sleep that is associated with bilaterally symmetrical sleep spindle and vertex sharp waves. Throughout the record, no active epileptiform activity was noted. IMPRESSION: This patient's EEG is intermixed with theta range slowing on both sides. That is a nonspecific abnormality, which can occur with encephalopathy, effect of psychotropic medication, dementia, etc. Clinical correlation is recommended. <ELECTRONICALLY SIGNED> By: Luis Gonzales MD 05/25/18 [id number] Gonzales MD /nt
== END 2018-05-21 18:00 | DRG 871 ==
LOC: M.ERS 13:53 → M.ICU 16:26 → M.TBA-ER 16:26 → M.ICU 18:35 → M.3W 05-14 17:37
PROVIDERS: Family Medicine; Internal Medicine; Internal Medicine Pulmonary Disease; Personal Emergency Response Attendant; ADMIT Internal Medicine
PROC: 02HV33Z Insertion of Infusion Device into Superior Vena Cava, Percutaneous Approach (ICD-10-PCS; principal; 2018-05-13)
DX: A41.9 Sepsis, unspecified organism (principal); G92 Toxic encephalopathy; J15.6 Pneumonia due to other Gram-negative bacteria; J96.20 Acute and chronic respiratory failure, unspecified whether with hypoxia or hypercapnia; E87.2 Acidosis; B17.9 Acute viral hepatitis, unspecified; T58.8X1A Toxic effect of carbon monoxide from other source, accidental (unintentional), initial encounter; T50.995A Adverse effect of other drugs, medicaments and biological substances, initial encounter; I10 Essential (primary) hypertension; E11.9 Type 2 diabetes mellitus without complications; K21.9 Gastro-esophageal reflux disease without esophagitis; E78.5 Hyperlipidemia, unspecified; J44.9 Chronic obstructive pulmonary disease, unspecified; G89.29 Other chronic pain; I27.20 Pulmonary hypertension, unspecified; G47.30 Sleep apnea, unspecified; F32.9 Major depressive disorder, single episode, unspecified; F17.210 Nicotine dependence, cigarettes, uncomplicated; Z90.49 Acquired absence of other specified parts of digestive tract; Z79.899 Other long term (current) drug therapy; Z88.5 Allergy status to narcotic agent; Z88.6 Allergy status to analgesic agent; Z88.8 Allergy status to other drugs, medicaments and biological substances; Z71.6 Tobacco abuse counseling; Y92.89 Other specified places as the place of occurrence of the external cause; Z23 Encounter for immunization

== ENCOUNTER 2021-04-16 10:11 | Inpatient (IN) | payer MEDICARE, MEDICAID ==
[~2021-04-16] VITALS: Ht 160 cm; Wt 74.8 kg
[~2021-04-16 10:11] MED LIST changes: +ATIVAN0.5 MG PO; +BROVANA15 MCG/2 M INH; +EXTRA STRENGTH85 GM TOP; +LEVAQUIN 500 M500 M1 PO; +LIDOPATCH1 EACH TOP; +LYRICA 75 MG CA75 MG PO; +OXYCODONE HCL10 MG PO; +PAIN RELIEVER500 MG PO; +PULMICORT0.5 MG/2 M INH; +REQUIP XL2 MG PO
[2021-04-16 10:48] VITALS: BP 137/84; BP 147/85
[2021-04-16 11:39] LABS: HEMATOCRIT 46.7 % (37.0-47.0); HEMOGLOBIN 15.7 gm/dL (12.0-15.0); MCH 30.3 pg (26.0-34.0); MCHC 33.8 g/dL (28.0-37.0); MCV 89.7 fL (80.0-100.0); MPV 7.1 fl. (7.2-11.1); NUCLEATED RBCS 0 /100WBC; PLATELET COUNT* 199 thou/uL (150-400); RDW-CV 15.4 % (10.5-14.5); WBC 9.6 thou/uL (4.0-11.0)
[2021-04-16 11:45] LABS: CALCIUM 8.5 mg/dL (8.5-10.1); CREATININE 1.2 mg/dL (0.6-1.3); POTASSIUM 4.2 mmol/L (3.5-5.1)
[2021-04-16 11:49] LABS: ALBUMIN 3.2 g/dL (3.4-5.0); TOTAL BILIRUBIN 0.4 mg/dL (<0.1-1.0); TOTAL PROTEIN 7.9 g/dL (6.4-8.2)
[2021-04-16 12:40] LABS: ABSOLUTE LYMPHOCYTES 1.3 thou/uL (0.8-5.3); ABSOLUTE MONOCYTES 0.1 thou/uL (0.0-1.2); ABSOLUTE NEUTROPHILS 8.2 thou/uL (1.6-8.1); PLATELET ESTIMATE ADEQUATE
--- NOTE | 2021-04-16 13:04 | EKG ---
[place] [address] ELECTROCARDIOGRAM REPORT Name: LORENZO YOUNGER [facility] [id number] Admission: 04/16/21 Attend Phys: Discharge: Date of : 63 Date of Service: 04/16/21 1109 Report #: [id number] THIS REPORT FOR: //name// [facility] ED Test Date: 2021-04-16 Test Time: 11:09:41 Pat Name: LORENZO YOUNGER Department: Room: Gender: F Learning Support Assistant: : 1965 Requested By: Brando Reyes Order Number: [id number] MD: Anand Haywood Measurements Intervals [place] Rate: 100 P: 39 OR: 139 QRS: 48 QRSD: 71 T: 33 QT: 302 QTc: 390 Interpretive Statements Sinus tachycardia Probable left atrial enlargement Compared to ECG 05/13/2018 16:00:03 No significant changes Electronically Signed On 04-16-2021 13:03:49 CDT by Anand Haywood [email or web address] <ELECTRONICALLY SIGNED> By: Anand Haywood MD, [facility] 04/16/21 1303 08 Anand Haywood MD, FACC /EPI
[2021-04-16 16:25] VITALS: BP 128/81
[2021-04-16 17:37] VITALS: BP 151/74
[2021-04-16 17:42] VITALS: BP 147/60
--- NOTE | 2021-04-16 18:48 | NUR ---
PT ARRIVED TO UNIT AT APPROX 1700. PT IS ALERT AND ORIENTED X4 BUT VERY SLEEPY AND CLOSES EYES BETWEEN EVERY QUESTION DURING ASSESSMENT. PT LUNGS ARE DIMINISHED, PT IS FLUSHED AND FEBRILE. TEMP IS 102.4 AND PT C/O "BAD HEADACHE". DR. VELEZ NOTIFIED AND NEW ORDER FOR TYLENOL 650MG Q6HR FOR FEVER OR HEADACHE. NS AT 100MLS PER HR STARTED. SAFETY MEASURES IN PLACE, PT CURRENTLY NPO AND ON BEDREST. O2 AT 2L PER NC.
[2021-04-16 20:01] VITALS: BP 130/49
[2021-04-17] VITALS: BP 139/69
[2021-04-17 03:31] LABS: URINE BILIRUBIN NEGATIVE (Negative); URINE BLOOD TRACE (Negative); URINE CLARITY CLEAR; URINE COLOR YELLOW; URINE GLUCOSE-RANDOM NEGATIVE (Negative); URINE KETONES NEGATIVE (Negative); URINE LEUKOCYTES-REFLEX NEGATIVE (Negative); URINE NITRITE-REFLEX NEGATIVE (Negative); URINE PROTEIN 1+ (Negative)
[2021-04-17 03:51] LABS: INFLUENZA A ANTIGEN Negative (Negative); INFLUENZA B ANTIGEN Negative (Negative)
[2021-04-17 04:00] VITALS: BP 127/62
[2021-04-17 04:38] LABS: HEMATOCRIT 43.9 % (37.0-47.0); HEMOGLOBIN 15.1 gm/dL (12.0-15.0); MCH 30.2 pg (26.0-34.0); MCHC 34.3 g/dL (28.0-37.0); MCV 88.2 fL (80.0-100.0); MPV 7.6 fl. (7.2-11.1); RBC 4.98 mil/uL (4.20-5.00); RDW-CV 15.5 % (10.5-14.5)
[2021-04-17 04:48] LABS: CALCIUM 7.5 mg/dL (8.5-10.1); CREATININE 1.1 mg/dL (0.6-1.3); POTASSIUM 3.7 mmol/L (3.5-5.1)
--- NOTE | 2021-04-17 06:22 | NUR ---
PT A&OX4, VSS ON 2L NC, IV FLUIDS INFUSING ODERED, SR - SR WITH PAC'S ON TELE MONITOR. PT NPO. PT SLEEPING MAJORITY OF NIGHT. N/V X1, PHYSICIAN CONTACTED AND ORDER GIVEN FOR ZOFRAN IVP 4MG Q4H PRN, GIVEN ORDERED. PT CO HEADACHE, PRN TYLENOL GIVEN ORDERED WITH SIP OF WATER OK'D BY CALL TO PHYSICIAN. PT SLEPT MAJORITY OF NIGHT. WILL CONTINUE TO MONITOR.
[2021-04-17 08:00] VITALS: BP 104/65
[2021-04-17 12:32] VITALS: BP 117/55
[2021-04-17 17:41] VITALS: BP 90/44
[2021-04-17 20:45] VITALS: BP 102/55
[2021-04-18] VITALS: BP 118/56; BP 124/61
[2021-04-18 04:00] VITALS: BP 125/56
--- NOTE | 2021-04-18 04:07 | NUR ---
PT A&OX4, VSS ON 2.5L O2 NC, PT UP TO BSC WITH SBA. SR ON TELE MONITOR. PRN PO PAIN MED REQUESTED AND GIVEN ORDERED. IV SALINE LOCKED. AT APPROX 2223 PT CO ITCHING AND REQUESTED MED FOR SLEEP, PHYSICIAN CONTACTED, ORDER GIVEN FOR BENADRYL & MELATONIN; ADMINISTERED ORDERED. PT SLEEPING WELL, WILL CONTINUE TO MONITOR.
[2021-04-18 04:41] LABS: HEMATOCRIT 40.6 % (37.0-47.0); HEMOGLOBIN 13.9 gm/dL (12.0-15.0); MCH 30.3 pg (26.0-34.0); MCHC 34.1 g/dL (28.0-37.0); MCV 88.8 fL (80.0-100.0); MPV 8.7 fl. (7.2-11.1); RBC 4.57 mil/uL (4.20-5.00); RDW-CV 15.3 % (10.5-14.5); WBC 4.9 thou/uL (4.0-11.0)
[2021-04-18 05:03] LABS: CALCIUM 8.1 mg/dL (8.5-10.1); CREATININE 1.2 mg/dL (0.6-1.3); POTASSIUM 4.2 mmol/L (3.5-5.1)
[2021-04-18 08:30] VITALS: BP 117/52
[2021-04-18 12:00] VITALS: BP 112/53
[2021-04-18 16:00] VITALS: BP 117/61
[2021-04-18 19:35] VITALS: BP 110/63
[2021-04-19] VITALS (7 sets, daily range): BP systolic 96–155; BP diastolic 52–77
[2021-04-19 03:53] LABS: HEMATOCRIT 40.7 % (37.0-47.0); HEMOGLOBIN 13.8 gm/dL (12.0-15.0); MCH 30.3 pg (26.0-34.0); MCV 89.2 fL (80.0-100.0); MPV 8.8 fl. (7.2-11.1); RBC 4.57 mil/uL (4.20-5.00); RDW-CV 15.6 % (10.5-14.5); WBC 7.1 thou/uL (4.0-11.0)
[2021-04-19 04:34] LABS: CALCIUM 8.6 mg/dL (8.5-10.1); CREATININE 1.2 mg/dL (0.6-1.3); POTASSIUM 4.2 mmol/L (3.5-5.1)
--- NOTE | 2021-04-19 06:58 | NUR ---
PT A&OX4, VSS ON ROOM AIR, IV SALINE LOCKED, UP AD JUAN. SR-SB WITH OCCAUSIONAL PAC'S ON TELE MONITOR. PRN PO PAIN MED REQUESTED AND GIVEN ORDERED. PT SLEEPING WELL.
--- NOTE | 2021-04-19 14:53 | NUR ---
Pt is A&O. Resides at home. Independent. No DME. No hx of HH. Hx of SNF at [facility]. Plan LUCAS tomorrow. ID consulted for bacteria in blood. Possible dc tomorrow, following
[2021-04-20] VITALS (10 sets, daily range): BP systolic 117–146; BP diastolic 62–99
--- NOTE | 2021-04-20 06:59 | NUR ---
PT STABLE AND RESTING IN BED. UP TO BATHROOM INDEPENDENTLY. PAIN MANAGED WITH PRN OXY. ON RA. REMAINS FREE FROM INJURY. PT HEART RHYTEM CONVERT TO STABLE AFIB. PT DENIES PAIN OR DISCOMFORT. VITALS WNL.
--- NOTE | 2021-04-20 07:50 | NUR ---
PT CONVERTED INTO AFIB, DR NOTIFIED AND CONSULTED CARDIOLOGY. PT DENIES CHEST PAIN. VITALS WNL. REMAINS FREE FROM INJURY
--- NOTE | 2021-04-20 09:18 | TEE ---
[place] [address] TRANSESOPHAGEAL ECHOCARDIOGRAM Name: LORENZO YOUNGER Room: [address] IN [facility]#: [id number] Admission: 04/18/21 Attend Phys: Damian Butts Discharge: Date of : 63 Date of Service: 04/20/[address] Report #: [id number] THIS REPORT FOR: cc: SOURAV HACKETT JENNIFER A. DO Liston, Michael J. MD [facility] ~ APPROVED REPORT Study performed: 04/20/2021 08:18:37 EXAM: Transesophageal Echocardiogram Patient Location: In-Patient Room #: [facility] Status: routine BSA: 1.78 HR: 110 bpm BP: 136/94 mmHg Rhythm: Atrial Fibrillation Other Information Study Quality: Good Indications Atrial Fibrillation BACTEREMIA Echo Enhancing Agent Indication: Rule out Shunt Agent(s) / Amount(s) Used: Agitated Saline 10 cc Procedure After obtaining informed consent, patient underwent transesophageal echo in the [employer]. Type of Sedation : Conscious Sedation Sedation was administered by Sridhar Garcia RN. Sedation start time: 839 Case end Time: 854 Sedation was achieved intravenously with: Versed (5) Fentanyl (125) Transesophageal probe was inserted and advanced into esophagus without difficulty by Mateus Sy MD, [facility]. Echo enhancement indication: R/O Septal defect. Echo enhancement agent administered: Agitated Saline The LUCAS was performed without complications. Throughout the procedure, the blood pressure, pulse oximetry, [place] [address] TRANSESOPHAGEAL ECHOCARDIOGRAM Name: LORENZO YOUNGER Room: [address] IN [facility].#: [id number] Admission: 04/18/21 Attend Phys: Damian Butts Discharge: Date of : 63 Date of Service: 04/20/21 0918 Report #: [id number] rhythm, and rate were monitored. The patient tolerated the procedure without adverse effects. Recovery from conscious sedation was uneventful and vital signs were stable. Left Ventricle The left ventricle is normal size. There is normal LV segmental wall motion. There is normal left ventricular wall thickness. Left ventricular systolic function is normal. LVEF is 60%. Right Ventricle The right ventricle is normal size. The right ventricular systolic function is normal. Atria The left atrium size is normal. No thrombus is visualized in the left atrium or appendage. The interatrial septum is intact with no evidence for an atrial septal defect. The right atrium size is normal. Aortic Valve The aortic valve is normal in structure. No aortic regurgitation is present. There is no aortic valvular stenosis. Mitral Valve The mitral valve is normal in structure. Trace mitral regurgitation. No evidence of mitral valve stenosis. Tricuspid Valve The tricuspid valve is normal in structure. There is no tricuspid valve regurgitation noted. Pulmonic Valve The pulmonary valve is normal in structure. There is no pulmonic valvular regurgitation. Great Vessels The aortic root is normal in size. Pericardium There is no pericardial effusion. <Conclusion> The left ventricle is normal size. There is normal left ventricular wall thickness. Left ventricular systolic [place] [address] TRANSESOPHAGEAL ECHOCARDIOGRAM Name: LORENZO YOUNGER Room: [address] IN [facility].#: [id number] Admission: 04/18/21 Attend Phys: Damian Butts Discharge: Date of : 63 Date of Service: 04/20/[address] Report #: [id number] LVEF is 60%. There is normal LV segmental wall motion. The interatrial septum is intact with no evidence for an atrial septal defect. The left atrium size is normal. No thrombus is visualized in the left atrium or appendage. The aortic valve is normal in structure. The mitral valve is normal in structure. Trace mitral regurgitation. The tricuspid valve is normal in structure. The pulmonary valve is normal in structure. There is no evidence of valvular vegetation. <ELECTRONICALLY SIGNED> By: Mateus Sy MD, [facility] 04/20/[address] 7 7 Mateus Sy MD, FACC /INF
--- NOTE | 2021-04-20 12:32 | NUR ---
Pt discharging to home today, no needs.
== END 2021-04-20 14:45 | disposition home or self-care (01) | DRG 871 ==
LOC: M.ERS 10:11 → M.TBA-ER 13:43 → M.2W 16:19
PROVIDERS: Emergency Medicine Emergency Medical Services; Internal Medicine; ADMIT Internal Medicine; ATTEND Internal Medicine
DX: A41.1 Sepsis due to other specified staphylococcus (principal); J96.01 Acute respiratory failure with hypoxia; J18.9 Pneumonia, unspecified organism; I10 Essential (primary) hypertension; I48.0 Paroxysmal atrial fibrillation; D69.6 Thrombocytopenia, unspecified; E11.9 Type 2 diabetes mellitus without complications; F32.9 Major depressive disorder, single episode, unspecified; E66.9 Obesity, unspecified; J44.9 Chronic obstructive pulmonary disease, unspecified; E78.5 Hyperlipidemia, unspecified; K21.9 Gastro-esophageal reflux disease without esophagitis; Z20.822 Contact with and (suspected) exposure to COVID-19; Z90.49 Acquired absence of other specified parts of digestive tract; Z79.899 Other long term (current) drug therapy; Z88.6 Allergy status to analgesic agent; Z88.5 Allergy status to narcotic agent; Z71.6 Tobacco abuse counseling; Z72.0 Tobacco use; Z68.29 Body mass index [BMI] 29.0-29.9, adult